=== PATIENT | female | born 1950 | race Caucasian/White ===

== ENCOUNTER → 2018-05-25 | Outpatient (CLI) | payer MEDICARE, OTHER | LOC: M.RAD 02-28 11:39 | DX: Z12.31 Encounter for screening mammogram for malignant neoplasm of breast (principal); M81.0 Age-related osteoporosis without current pathological fracture; E03.9 Hypothyroidism, unspecified ==

== ENCOUNTER → 2019-05-29 | Outpatient (CLI) | payer MEDICARE, OTHER | LOC: M.RAD 14:08 | DX: Z12.31 Encounter for screening mammogram for malignant neoplasm of breast (principal) ==

== ENCOUNTER → 2020-05-30 | Outpatient (CLI) | payer MEDICARE, OTHER | LOC: M.RAD 08:43 | PROVIDERS: ATTEND Family Medicine | DX: Z12.31 Encounter for screening mammogram for malignant neoplasm of breast (principal) ==

== ENCOUNTER → 2021-02-02 | Outpatient (CLI) | payer MEDICARE, OTHER | LOC: M.RAD 13:30 | PROVIDERS: ATTEND Nurse Practitioner | DX: M81.0 Age-related osteoporosis without current pathological fracture (principal); E03.9 Hypothyroidism, unspecified; E55.9 Vitamin D deficiency, unspecified; Z00.00 Encounter for general adult medical examination without abnormal findings ==

== ENCOUNTER → 2021-06-01 | Outpatient (CLI) | payer MEDICARE, OTHER | LOC: M.RAD 07:48 | PROVIDERS: ATTEND Family Medicine | DX: Z12.31 Encounter for screening mammogram for malignant neoplasm of breast (principal) ==